=== PATIENT | female | born 1950 | race American Indian/Alaskan Native ===

== ENCOUNTER 2018-09-26 13:41 | Emergency (ER) | payer OTHER ==
[2018-09-26 13:56] VITALS: BMI 42.9
[2018-09-26 13:59] VITALS: TEMP 98.2
--- NOTE | 2018-09-26 14:20 | ED PDOC ---
Arrival/HPI - General Chief Complaint: GI Problem Time Seen by Provider: 09/26/18 14:20 Historian: Patient - History of Present Illness Narrative History of Present Illness (Text): 09/26/18 14:40 A 68 year old female, whose past medical history includes HTN, presents to the emergency department complaining of vomiting. Patient reports she was at [facility] when she suddenly began vomiting and experiences associated diffuse abdominal pain. Patient denies any other complaints at this time. States last bowel movement was yesterday, and it was hard and small. PMD: Dr. Reardon Past Medical History - Provider Review Nursing Documentation Reviewed: Yes - Infectious Disease Hx of Infectious Diseases: None - Cardiac Hx Hypertension: Yes Hx Pacemaker: No - Pulmonary Hx Respiratory Disorders: No - Neurological Hx Neurological Disorder: No - HEENT Hx HEENT Disorder: No - Renal Hx Renal Disorder: No - Endocrine/Metabolic Hx Endocrine Disorders: No - Hematological/Oncological Hx Blood Disorders: No Hx Blood Transfusions: No Hx Blood Transfusion Reaction: No - Integumentary Hx Dermatological Disorder: No - Musculoskeletal/Rheumatological Hx Musculoskeletal Disorders: No - Gastrointestinal Hx Gastrointestinal Disorders: No - Genitourinary/Gynecological Hx Genitourinary Disorders: No - Psychiatric Hx Psychophysiologic Disorder: No Hx Substance Use: No - Anesthesia Hx Anesthesia: No Hx Anesthesia Reactions: No Hx Malignant Hyperthermia: No Family/Social History - Physician Review Nursing Documentation Reviewed: Yes Family/Social History: No Known Family HX Smoking Status: Never Smoked Hx Alcohol Use: No Hx Substance Use: No Allergies/Home Meds Allergies/Adverse Reactions: Allergies No Known Allergies Allergy (Verified 06/20/18 11:00) Home Medications: Home Meds Medication Instructions Recorded Confirmed Cholecalciferol (Vitamin D3) 2,000 unit PO PRN PRN 06/20/18 06/20/18 [Vitamin D3] Ibuprofen [Advil] 200 mg PO PRN PRN 06/20/18 06/20/18 amLODIPine [Norvasc] 5 mg PO QAM 06/20/18 06/20/18 Review of Systems - Physician Review All systems were reviewed & negative as marked: Yes - Review of Systems Constitutional: absent: Fevers, Night Sweats Respiratory: absent: SOB Cardiovascular: absent: Chest Pain Gastrointestinal: Abdominal Pain (slight diffused abdominal pain.), Vomiting. absent: Diarrhea, Nausea Neurological: absent: Headache, Dizziness Physical Exam Vital Signs Reviewed: Yes Vital Signs Temp Pulse Resp BP Pulse Ox 09/26/18 13:58 98.2 F 98 H 16 135/91 H 99 Temperature: Afebrile Blood Pressure: Normal Pulse: Regular Respiratory Rate: Normal Appearance: Positive for: Well-Appearing, Non-Toxic, Comfortable, Other (obese) Pain Distress: None Mental Status: Positive for: Alert and Oriented X 3 - Systems Exam Head: Present: Atraumatic, Normocephalic Pupils: Present: PERRL Extroacular Muscles: Present: EOMI Conjunctiva: Present: Normal Mouth: Present: Moist Mucous Membranes Neck: Present: Normal Range of Motion Respiratory/Chest: Present: Clear to Auscultation, Good Air Exchange. No: Respiratory Distress, Accessory Muscle Use Cardiovascular: Present: Regular Rate and Rhythm, Normal S1, S2. No: Murmurs Abdomen: Present: Tenderness (diffuse tenderness). No: Distention, Peritoneal Signs, Rebound Back: Present: Normal Inspection Upper Extremity: Present: Normal Inspection. No: Cyanosis, Edema Lower Extremity: Present: Normal Inspection. No: Edema Neurological: Present: GCS=15, CN II-XII Intact, Speech Normal Skin: Present: Warm, Dry, Normal Color. No: Rashes Psychiatric: Present: Alert, Oriented x 3, Normal Insight, Normal Concentration Medical Decision Making ED Course and Treatment: 09/26/18 14:47 Impression: 68 year old female with vomiting. Plan: -- EKG -- Chest X-ray -- Labs -- UA -- Zofran -- IV Fluids -- Reassess and disposition Progress Notes: EKG: Ordered, reviewed, and independently interpreted the EKG. Rate : 94 BPM Rhythm : NSR Interpretation : No ST-segment elevations or depressions, no T-wave inversions, normal intervals. Comparison : No previous EKG for comparison. 09/26/18 17:48 Patient states she is feeling better and no longer vomiting. 09/26/2018 18:15 Chest X-ray IMPRESSION: No active disease. Dictator: Colt Do MD 09/26/18 19:10 Patient states pain has returned and still vomiting. Morphine, troponin and CT Abd/Pelvis has been ordered for patient. 09/26/18 20:26 Notified by nursing staff that iv has infiltrated and patient started vomiting again. Zofran ODT ordered. 09/26/18 21:00 Patient signed out at shift changed to Dr. Green, pending troponin, CT results, reassessment and dispostion. - Lab Interpretations I have reviewed the lab results: Yes - Scribe Statement The provider has reviewed the documentation as recorded by the Scribe Mahogany Pulliam Provider Scribe Provider Scribe Attestation: All medical record entries made by the Scribe were at my direction and personally dictated by me. I have reviewed the chart and agree that the record accurately reflects my personal performance of the history, physical exam, medical decision making, and the department course for this patient. I have also personally directed, reviewed, and agree with the discharge instructions and disposition. Disposition/Present on Arrival - Present on Arrival History of DVT/PE: No History of Uncontrolled Diabetes: No Urinary Catheter: No History of Decub. Ulcer: No History Surgical Site Infection Following: None - Disposition Referrals: Major Reardon MD [Primary Care Provider] - Follow up with primary Forms: [employer] (Slovak)
[2018-09-26] MEDS ORDERED: Sodium Chloride 0.9% 1,000 ML IV STA (14:32)
[2018-09-26 14:46] LABS: BASO # 0.02 K/mm3 (0.0-2.0); BASO % 0.3 % (0.0-3.0); EOS # 0.1 (0.0-0.7); EOS % 0.7 % (1.5-5.0); GRAN # 4.93 (1.4-6.5); GRAN % 73.2 % (50.0-68.0); HEMOGLOBIN 12.4 g/dL (12.0-16.0); LYMPH # 1.4 (1.2-3.4); LYMPH % 20.2 % (22.0-35.0); MEAN CORPUSCULAR HEMOGLOBIN 26.7 pg (25.0-35.0); MEAN PLATELET VOLUME 8.7 fl (7.0-11.0); MONO # 0.4 (0.1-0.6); MONO % 5.6 % (1.0-6.0); RBC 4.64 10^6/uL (3.5-6.1); RED CELL DISTRIBUTION WIDTH 14.5 % (11.5-14.5); WHITE BLOOD COUNT 6.7 10^3/uL (4.5-11.0)
[2018-09-26 15:06] LABS: ALBUMIN 4.2 g/dL (3.0-4.8); BLOOD UREA NITROGEN 21 mg/dL (7-21); CALCIUM 9.7 mg/dL (8.4-10.5); GFR NON-AFRICAN AMERICAN 55; LIPASE 63 U/L (23-300)
[2018-09-26 15:29] LABS: ALT/SGPT 19 U/L (7-56); AST/SGOT 32 U/L (14-36)
--- NOTE | 2018-09-26 16:35 | CARD ---
APPROVED REPORT Date of service: 09/26/2018 EKG Measurement Heart [id number] <Conclusion> Normal sinus rhythm Low voltage QRS Borderline ECG
--- NOTE | 2018-09-26 18:19 | RAD ---
Date of service: 09/26/2018 HISTORY: vomiting COMPARISON: PET-CT dated 07/21/2018. TECHNIQUE: Chest PA and lateral FINDINGS: LUNGS: No active pulmonary disease. PLEURA: No significant pleural effusion identified. No pneumothorax apparent. CARDIOVASCULAR: Aortic atherosclerotic calcifications. Cardiomediastinal silhouette enlarged OSSEOUS STRUCTURES: No significant abnormalities. VISUALIZED UPPER ABDOMEN: Spinal degenerative changes normal. OTHER FINDINGS: None. IMPRESSION: No active disease.
--- NOTE | 2018-09-26 18:20 | RAD ---
Date of service: 09/26/2018 HISTORY: vomiting COMPARISON: PET-CT dated 07/21/2018 FINDINGS: BOWEL: Normal. No obstruction. No free air. BONES: Degenerative changes. OTHER FINDINGS: None. IMPRESSION: No active disease.
[2018-09-26] MEDS ORDERED: Morphine 4 mg/ml ISec IVP STA (19:10)
--- NOTE | 2018-09-26 20:34 | ED PDOC ---
Physical Exam Vital Signs Reviewed: Yes Vital Signs Temp Pulse Resp BP Pulse Ox 09/26/18 13:58 98.2 F 98 H 16 135/91 H 99 Temperature: Afebrile Blood Pressure: Hypertensive Pulse: Tachycardic Respiratory Rate: Normal Appearance: Positive for: Well-Appearing, Non-Toxic, Comfortable Pain Distress: None Mental Status: Positive for: Alert and Oriented X 3 Medical Decision Making ED Course and Treatment: 09/26/18 20:33 Patient endorsed to me by Dr. Ramos pending Troponin, CT a & p 09/26/18 23:51 CT a/p reviewed with no evidence of colitis or obstruction seen. A pelvic mass is noted near the right adnexa. Patient reexamined and made aware of results and states she will follow up with her PCP. She is advised to continue supportive therapy. Scripts provided. She is stable for discharge. - Lab Interpretations Lab Results: 09/26/18 14:39 09/26/18 14:52 Lab Results 09/26/18 14:52: Sodium 139, Potassium 4.6, Chloride 107, Carbon Dioxide 24, Anion Gap 13, BUN 21, Creatinine 1.0, Est GFR ( Amer) > 60, Est GFR (Non- Af Amer) 55, Random Glucose 96, Calcium 9.7, Magnesium 2.2, Total Bilirubin 0.4, AST 32, ALT 19, Alkaline Phosphatase 80, Total Protein 8.6 H, Albumin 4.2, Globulin 4.4, Albumin/Globulin Ratio 1.0 L, Lipase 63 09/26/18 14:39: WBC 6.7, RBC 4.64, Hgb 12.4, Hct 37.6, MCV 81.0, MCH 26.7, MCHC 33.0, RDW 14.5, Plt Count 237, MPV 8.7, Gran % 73.2 H, Lymph % (Auto) 20.2 L, Austin % (Auto) 5.6, Eos % (Auto) 0.7 L, Baso % (Auto) 0.3, Gran # 4.93, Lymph # (Auto) 1.4, [place] # (Auto) 0.4, Eos # (Auto) 0.1, Baso # (Auto) 0.02 - RAD Interpretation Narrative RAD Interpretations (Text): 09/26/18 23:12 CT ABD & Pelvis reviewed by LILY, shows: CLINICAL HISTORY: Pain. TECHNIQUE: Multiple axial, coronal, sagittal CT images were obtained through the abdomen and pelvis without administration of oral or IV contrast material. DLP 1188.17. COMMENTS: The liver is of uniform attenuation without mass or defect. There is no intra or extrahepatic biliary ductal dilatation. The spleen is normal. The gallbladder is within normal limits. The pancreas is of normal contour and attenuation characteristics. There is no evidence of adrenal mass. The kidneys are normal in size, shape and configuration. No renal or ureteral calculi are identified. There is evidence of moderate right hydronephrosis of uncertain etiology. There is marked right perinephric stranding present which may represent recently passed stone. There is no evidence for appendicitis. There is no bowel wall thickening. No evidence for small or large bowel obstruction. There is no evidence of abdominal ascites. There is diffuse diverticulosis involving the descending and sigmoid colon. There is no evidence of acute diverticulitis. There is extensive retroperitoneal lymphadenopathy, this includes a large left paraaortic lymph node/mass which measures 5.5 x 4.8 cm. It is located at the level of the mid left kidney. There is evidence of a large mass in the region of right pelvic sidewall/right adnexal region which measures 8 x 6 cm. There is no evidence of intrinsic or extrinsic bladder mass. There is no pelvic ascites. Surgical clips are present in the left pelvis. The patient is status post complete hysterectomy. Images of the lung bases show no evidence of pleural or parenchymal mass. There are no pleural effusions. Small hiatal hernia is seen. The bony structures are free of lytic or blastic lesions. Note is made of mild to moderate chronic compression fracture deformities involving L3, L4 and L5 vertebral bodies. IMPRESSION: 1. Moderate right hydronephrosis. Marked right perinephric stranding. This could be due to a recently passed stone. 3. Diffuse diverticulosis involving the descending and sigmoid colon. There is no evidence of acute diverticulitis. 4. Extensive retroperitoneal lymphadenopathy, this includes a large left paraaortic lymph node/mass which measures 5.5 x 4.8 cm. It is located at the level of the mid left kidney. 5. Large mass in the region of right pelvic sidewall/right adnexal region which measures 8 x 6 cm. 6. Consider further workup which may include contrast enhanced CT of the neck, chest, abdomen and pelvis versus PET CT. 10/29/18 23:45 Radiology Orders: 09/26/18 15:11 CHEST TWO VIEWS (PA/LAT) [RAD] Stat obstructive series [ABD 2 VIEWS (FLAT/UP OR DECUB)] [RAD] Stat 09/26/18 19:11 ABD & PELVIS IV CONTRAST ONLY [CT] Stat Director Of Public Works: Radiologist - Medication Orders Current Medication Orders: Sodium Chloride (Sodium Chloride 0.9%) 1,000 mls @ 100 mls/hr IV .Q10H STA Stop: 09/27/18 00:31 Last Admin: 09/26/18 14:40 Dose: 100 mls/hr eMAR Start Stop Document 09/26/18 14:40 TA (Rec: 09/26/18 14:41 TA [facility]-) Intravenous Solution Start Date 09/26/18 Start Time 14:41 Ondansetron HCl (Zofran Odt) 4 mg PO STAT STA Stop: 09/26/18 20:31 Discontinued Medications Morphine Sulfate (Morphine) 4 mg IVP STAT STA Stop: 09/26/18 19:11 Ondansetron HCl (Zofran Inj) 4 mg IVP STAT STA Stop: 09/26/18 14:33 Last Admin: 09/26/18 14:41 Dose: 4 mg IVP Administration Document 09/26/18 14:41 TA (Rec: 09/26/18 14:41 TA [facility]-20) Charges for Administration # of IVP Administrations 1 Disposition/Present on Arrival - Present on Arrival Any Indicators Present on Arrival: No History of DVT/PE: No History of Uncontrolled Diabetes: No Urinary Catheter: No History of Decub. Ulcer: No History Surgical Site Infection Following: None - Disposition Have Diagnosis and Disposition been Completed?: Yes Diagnosis: Pelvic mass, Diverticulosis Disposition: HOME/ ROUTINE Disposition Time: 23:48 Patient Plan: Discharge Patient Problems: Current Active Problems Problem Status Onset Diverticulosis Acute Pelvic mass Acute Condition: IMPROVED Discharge Instructions (ExitCare): Nausea and Vomiting, Adult (DC) Prescriptions: Ondansetron ODT [Zofran ODT] 4 mg PO PRN PRN #6 odt PRN Reason: Nausea/Vomiting Referrals: Major Reardon MD [Primary Care Provider] - Follow up with primary Forms: [employer] (Albanian)
[2018-09-26] MEDS ORDERED: Iohexol 300 100 ML IJ ONE (21:36)
[2018-09-27 01:13] VITALS: RESP 18; O2SAT 100
[2018-09-27 01:19] VITALS: BP 140/75; PULSE 85
--- NOTE | 2018-09-27 11:52 | CT ---
Date of service: 09/26/2018 PROCEDURE: CT Abdomen and Pelvis without intravenous contrast HISTORY: pain; endometrial cancer history. COMPARISON: Abdomen and pelvis CT with contrast 06/13/2018 and PET-CT 07/21/2018. TECHNIQUE: Helical CT of the abdomen and pelvis was performed without oral or intravenous contrast as per referring physician request. Coronal and sagittal reformats were generated Contrast dose: None Radiation dose: Total exam DLP = 1188.17 mGy-cm. This CT exam was performed using one or more of the following dose reduction techniques: Automated exposure control, adjustment of the mA and/or kV according to patient size, and/or use of iterative reconstruction technique. FINDINGS: LOWER THORAX: Cardiomegaly reiterated as well as hiatal hernia. No infiltrate pleural or pericardial effusion appreciable. LIVER: An interval lucency seen in the dome of the liver laterally, measuring 1.8 x 1.3 cm (transverse by anteroposterior dimensions). A small tiny lucency under 1 cm stable at the left lobe medially posterior to this new lesion. Lack images contrast limits the evaluation. No additional hepatic mass identified. GALLBLADDER AND BILE DUCTS: Unremarkable. PANCREAS: Unremarkable. No gross lesion or ductal dilatation. SPLEEN: Unremarkable. ADRENALS: Unremarkable. No mass. KIDNEYS AND URETERS: No radiodense urolithiasis bilaterally. Perinephric reaction and mild hydronephrosis of the right kidney and ureter a function of right iliac lymphadenopathy and potential invasion of the right ureter distally. Urological consultation recommended. VASCULATURE: Nonaneurysmal abdominal aortic calcific atherosclerotic changes are identified. BOWEL: No bowel obstruction identified. Mild to moderate retained fecal material scattered throughout the large bowel. Small bowel is largely collapsed. Extensive left colonic diverticulosis is appreciate without definite diverticulitis pattern. APPENDIX: Unremarkable. Normal appendix. PERITONEUM: Unremarkable. No free fluid. No free air. LYMPH NODES: Retroperitoneal lymphadenopathy is now identified and increased at the right iliac distribution. A large left periaortic para renal lymph node seen left of center measuring 5.2 x 5.5 cm. An additional a right-sided pericaval lymph node measures 4.0 x 2.8 cm as a new finding. Finally, prior 2.2 x 1.5 cm right iliac lymphadenopathy is increased to an aggregate of 7.9 x 5.9 cm at the same location. BLADDER: Unremarkable. REPRODUCTIVE: Prior hysterectomy. BONES: No definite lytic or blastic lesions identified in the abdomen or pelvis. OTHER FINDINGS: None. IMPRESSION: 1. Increasing retroperitoneal and pelvic side wall lymphadenopathy as discussed above. A small lucency seen at the dome of the liver laterally toward the left suspicious interval metaphysis follow-up MRI without contrast can be performed for further characterization delete. Pattern suggests progression of metastatic disease. 2. Mild right hydroureteronephrosis likely caused by right pelvic lymphadenopathy. Consider follow-up contrast CT for added characterization. Urological consultation recommended. 3. Follow-up PET-CT may be helpful as well. Concordant preliminary report from [facility], 09/26/2018.
== END 2018-09-26 23:52 | disposition home or self-care (01) ==
LOC: ED 13:41
DX: R19.00 Intra-abdominal and pelvic swelling, mass and lump, unspecified site (principal); K57.90 Diverticulosis of intestine, part unspecified, without perforation or abscess without bleeding; I10 Essential (primary) hypertension
CPT/HCPCS: 71046; 74019; 74176; 80053; 83690; 83735; 85025; 93005; 96374; 99285; J2405; J7030